=== PATIENT | female | born 1965 | race Caucasian/White ===

== ENCOUNTER → 2020-06-29 | Outpatient (CLI) | payer BC | LOC: LAB 14:44 | DX: R07.0 Pain in throat (principal); R51.9 Headache, unspecified; R53.83 Other fatigue; Z20.828 Contact with and (suspected) exposure to other viral communicable diseases ==

== ENCOUNTER → 2020-07-12 | Outpatient (CLI) | payer BC | LOC: LAB 08:33 | DX: R09.81 Nasal congestion (principal); R51.9 Headache, unspecified; Z20.828 Contact with and (suspected) exposure to other viral communicable diseases ==

== ENCOUNTER → 2020-12-02 | Outpatient (CLI) | payer BC ==
[2020-12-02 08:05] LABS: BASO # 0.02 (0.02-0.10); EOS % 4.5 % (1.0-5.0); HEMATOCRIT 41.3 % (37.0-47.0); HEMOGLOBIN 13.8 g/dL (12.5-16.0); LYMPH# 1.72 (1.50-4.00); MEAN CELL VOLUME 89 fl (78-100); MEAN CORPUSCULAR HEMOGLOBIN 30 pg (27-31); MEAN CORPUSCULAR HGB CONC 33 g/dL (33-37); MEAN PLATELET VOLUME 9.8 fl (7.4-10.4); MONO # 0.36 (0.20-0.80); NEU # 2.13 (1.40-6.50); PLATELET COUNT 214 K/mm3 (130-400); RED BLOOD COUNT 4.63 M/mm3 (4.10-5.30); RED CELL DISTRIBUTION WIDTH 11.9 % (11.5-14.5); WHITE BLOOD COUNT 4.4 K/mm3 (4.8-10.8)
[2020-12-02 08:06] LABS: POTASSIUM 3.8 mmol/L (3.5-5.1)
[2020-12-02 08:07] LABS: ALBUMIN 4.2 g/dL (3.5-5.0)
[2020-12-02 08:08] LABS: CALCIUM 9.1 mg/dL (8.3-10.5)
[2020-12-02 08:09] LABS: TOTAL PROTEIN 6.9 g/dL (6.4-8.3)
[2020-12-02 08:11] LABS: TOTAL BILIRUBIN 0.6 mg/dL (0.2-1.2)
[2020-12-02 08:35] LABS: URINE APPEARANCE CLOUDY; URINE COLOR YELLOW; URINE GLUCOSE NEGATIVE (NEGATIVE); URINE KETONE NEGATIVE (NEGATIVE); URINE PROTEIN(semi-quant) NEGATIVE (NEGATIVE)
[2020-12-02 08:36] LABS: URINE BILIRUBIN NEGATIVE (NEGATIVE); URINE BLOOD NEGATIVE (NEGATIVE); URINE LEUKOCYTE ESTERASE 2+ (NEGATIVE); URINE MUCUS PRESENT (NOT PRESENT); URINE NITRATE NEGATIVE (NEGATIVE); URINE UROBILINOGEN NORMAL (NORMAL)
== END ==
LOC: LAB 07:42
PROVIDERS: Nurse Practitioner Primary Care
DX: Z00.00 Encounter for general adult medical examination without abnormal findings (principal)

== ENCOUNTER → 2021-03-06 | Day surgery (SDC) | payer BC | END | disposition home or self-care (01) | LOC: MSO 07:23 | DX: Z12.11 Encounter for screening for malignant neoplasm of colon (principal) | CPT/HCPCS: 00812; J2704; J3490; J7120 ==

== ENCOUNTER → 2021-12-13 | Outpatient (CLI) | payer BC | LOC: MAMMO 12:54 | DX: Z12.31 Encounter for screening mammogram for malignant neoplasm of breast (principal); N64.89 Other specified disorders of breast ==

== ENCOUNTER → 2021-12-28 | Outpatient (CLI) | payer BC | LOC: MAMMO 11:45 | DX: M47.818 Spondylosis without myelopathy or radiculopathy, sacral and sacrococcygeal region (principal); N64.89 Other specified disorders of breast ==